=== PATIENT | male | born 1960 | race American Indian/Alaskan Native ===

== ENCOUNTER 2024-09-28 15:58 | Emergency (ER) | payer MEDICAID, SELFPAY ==
[2024-09-28 15:59] VITALS: BMI 35.6
[2024-09-28 16:11] VITALS: BP 193/97; PULSE 73; RESP 16; TEMP 36.7; O2SAT 97
--- NOTE | 2024-09-28 16:28 | XR_ITS ---
Examination: Wrist, left 3 views Technique: Wrist AP, oblique, lateral 3 views Date and time of exam: September 28, 2024 1643 hrs. Indications: Redness swelling and pain involving the wrist beginning 3 days ago. Findings: No acute fracture No dislocation No cortical bone destruction Impression: No acute fracture
[2024-09-28] MEDS: KETOROLAC INJ 60 MG/2 ML VIAL IM (17:02)
--- NOTE | 2024-09-28 17:34 | PD.EDHAND ---
Upper Extremity Injury RME/HPI General Chief Complaint: Hand/Wrist Problems Stated Complaint: LEFT WRIST SWELLING AND PAIN. Time Seen by Provider: 09/28/24 16:20 Source: patient Arrival date/time: 09/28/24 15:58 This is a 64-year-old male who presents to the emergency department with complaints of left wrist pain. States that he has been having ongoing pain for 1 year to the left wrist, pain restarted 3 days ago prompting his ED visit today. History of carpal tunnel, hypertension noncompliant with his medical issues. Reports he has not followed up with his orthopedic he was supposed to have carpal tunnel surgery in which he did not follow through. Denies fever, chills no dyspnea no abdominal pain. Mode of arrival: ambulatory Limitations: no limitations Related Data Home Medications ?Medication ?Instructions ?Recorded ?Confirmed BLOOD PRESSURE MED 1 tab-cap QDAY PRN HYPERTENSION ##0 02/23/14 Previous Rx's ?Medication ?Instructions ?Recorded prednisolone sodium phosphate 10 10 mg PO .as directed #17 tabs 12/28/18 mg disintegrating tablet naproxen 500 mg tablet (Naprosyn) 500 mg PO BID PRN pain #20 tabs 09/28/24 Allergies Allergy/AdvReac Type Severity Reaction Status Date / Time No Known Allergies Allergy Verified 09/28/24 16:01 Review of Systems Review of Systems Systems Reviewed: All systems reviewed, normal except as documented Narrative Review of Systems: Gen: No fever, no chills, no weight loss EYES: No discharge, no visual changes, no pain HEENT: No ear pain, no congestion, no sore throat PULM: No shortness of breath, no cough, no congestion CV: No chest pain, no dyspnea on exertion, no palpitations GI: No nausea, no vomiting, no diarrhea, no pain, no constipation : No frequency, no urgency,? no dysuria Musc/skel: lt wrist pain pain, no back pain Skin: No rash? Psyc: No hallucinations, no depression Heme/Lymph: No easy bleeding or bruising tendencies Neuro: No weakness, no headache ED Exam General Limitations: Present no limitations General appearance: Present alert and in no apparent distress Head Head exam: Present atraumatic Eye Eye exam: Present normal appearance, PERRL and EOMI ENT ENT exam: Present normal exam, normal oropharynx and mucous membranes moist Neck Neck exam: Present normal inspection, full ROM and trachea midline Chest Chest inspection: Present normal inspection and symmetric chest wall rise Respiratory Respiratory exam: Present normal lung sounds bilaterally Cardiovascular Cardiovascular exam: Present regular rate, normal rhythm and normal heart sounds Abdominal Exam Abdominal exam: Present soft and normal bowel sounds Extremities Exam Extremities exam: Present full ROM, normal capillary refill and joint swelling Expanded Upper Extremity Exam Shoulder exam: Present normal inspection Arm exam: Present normal inspection Elbow exam: Present normal inspection Forearm/Wrist exam: Present tenderness (++ttp to anterior wrist, no warmth or hot to touch.) and swelling; Absent abrasion, deformity, crepitus, dislocation or tenderness over anatomical snuff box Back Exam Back exam: Present normal inspection and full ROM Neurological Exam Neurological exam: Present alert, oriented X3 and CN II-XII intact Psychiatric Psychiatric exam: Present normal affect and normal mood Skin Skin exam: Present warm, dry, intact and normal color Course Quality Measures none Orders Category Date Time Status XR wrist comp LT min 3V Stat Exams 09/28/24 16:28 Completed Ketorolac Inj [Toradol Inj] Med 09/28/24 16:28 Discontinued 60 mg IM X1 ONE Vital Signs Vital signs: Vital Signs Temperature 98.0 F 09/28/24 16:11 Pulse Rate 73 09/28/24 16:11 Respiratory Rate 16 09/28/24 16:11 Blood Pressure 193/97 H 09/28/24 16:11 Pulse Oximetry (%) 97 09/28/24 16:11 Oxygen Delivery Method Room Air 09/28/24 16:11 Extremity Injury MDM Narrative MDM Narrative:: 64-year-old male evaluated in the emergency department for chronic wrist pain. Hx carpel tunnel with required surgical tx, and patient failed tx. pain shot given while in ED improved pain. X-ray was negative. No signs of septic joint, abscess formation. Will discharge with pain control strictly advised to follow-up with PCP and initiate orthopedic referral again for possible treatment of carpal tunnel. Patient agrees with plan. Patient's blood pressure was elevated today, reports he forgot to take his blood pressure medication will take once he arrives at home. Denies chest pain, dyspnea. Tricked ER precautions given. Patient data External records reviewed:: [facility] previous records Clinical information provided by:: patient Social determinants that could affect healthcare access:: none Patient has the following chronic illnesses:: Hypertension, carpal tunnel, osteoarthritis, How is presenting disease/condition affected by chronic disease/condition?: no chronic disease Evaluation data The following diagnostics were reviewed and interpreted by me:: radiology exam(s) Lab and/or radiology exams considered but not ordered:: no Interpretation Summary: Examination: Wrist, left 3 views Technique: Wrist AP, oblique, lateral 3 views Date and time of exam: September 28, 2024 1643 hrs. Indications: Redness swelling and pain involving the wrist beginning 3 days ago. Findings: No acute fracture No dislocation No cortical bone destruction Impression: No acute fracture Medications / Prescriptions Medications or Prescriptions considered but not ordered:: Rx sent Medication administrations:: Medication Administration History Discontinued Medications Ketorolac Tromethamine (Ketorolac Inj 60 Mg/2 Ml Vial) 60 mg IM X1 ONE Stop: 09/28/24 16:29 Last Admin: 09/28/24 17:02 Dose: 60 mg Documented By: All medications administered and effective Consultations Consultation(s) initiated? (list below): No Diagnosis Upper Extremity Injury Differential Diagnosis: sprain and strain of wrist, fracture of wrist and finger sprain Most likely diagnosis given after review of the tests above:: Wrist pain likely carpal tunnel syndrome Admission Indicated Admission indicated?: not indicated Admission Request Was there a request for admission?: No Disposition Plan Disposition Plan: Discharge Discharge Attestation Discharge Attestation: The patient and all family members were given an opportunity to ask questions and understood the discharge instructions. Discharge instructions specifically effects, indications for sooner follow up or return to the emergency department, and the expected course of current diagnosis. Patient condition: Stable Discharge Plan Plan Patient Disposition: HOME (Self Care) Prescriptions/Referrals Prescriptions/Med Rec: New naproxen [Naprosyn] 500 mg tablet 500 mg PO BID PRN (Reason: pain) Qty: 20 0RF No Action BLOOD PRESSURE MED 1 tab-cap QDAY PRN (Reason: HYPERTENSION) Qty: 0 prednisolone sodium phosphate 10 mg tablet,disintegrating 10 mg PO .as directed Qty: 17 0RF Rx Instructions: 40mg for 3 days, then 20mg for 2 days, 10mg for 1 Referrals: Jd Myers MD [Primary Care Provider] - In 1 week Problem List Clinical Impression: Osteoarthritis of left wrist Patient/Caregiver Discharge Instructions Discharge Activity: activity as tolerated Education Materials: ED Osteoarthritis Additional Instructions: - Use splint for modification of pain, Pain medication as directed. It is very important that you make an appointment with your orthopedic surgeon again for follow-up on your carpal tunnel. Return to the emergency department this any worsening symptoms change in condition. Print Language: Sammarinese Stand Alone Forms: Karen Award Info., Patient Portal Info Letter Attestation Attestation The patient was seen by the midlevel practitioner. I, the co-signing physician, was present during the entire ER visit. While I did not physically examine the patient, I was available for consultation as needed.
== END 2024-09-28 19:10 | disposition home or self-care (01) ==
PROVIDERS: Emergency Provider Emergency Medicine; PCP Internal Medicine
DX: M19.032 Primary osteoarthritis, left wrist (principal)
CPT/HCPCS: 73110; 96372; 99283; J1885

== ENCOUNTER → 2024-12-12 | Outpatient (CLI) | payer MEDICAID, SELFPAY ==
--- NOTE | 2024-12-12 16:14 | XR_ITS ---
Examination: Left knee 4 views TECHNIQUE: AP oblique lateral axial left knee 4 views Exam date and time: December 12, 2024 1629 hours INDICATIONS: Left knee pain beginning 3 weeks ago. FINDINGS: Significant osteopenia Mild to moderate tricompartment osteoarthritis, most severe medial patellofemoral joints Small knee effusion No patellar dislocation No fracture IMPRESSION: Mild to moderate tricompartment osteoarthritis
== END | disposition home or self-care (01) ==
PROVIDERS: Referring Provider Internal Medicine; Visit Provider Internal Medicine
DX: M17.12 Unilateral primary osteoarthritis, left knee (principal)
CPT/HCPCS: 73564